=== PATIENT | male | born 1970 | race Hispanic/Latino ===

== ENCOUNTER 2019-03-11 15:53 | Emergency (ER) | payer OTHER ==
[2019-03-11] MEDS ORDERED: ACETAMINOPHEN EXTRA STRENGTH 500 MG TABLET ONE (16:10)
[2019-03-11 16:32] LABS: RAPID GROUP A STREP NEGATIVE (NEGATIVE)
== END 2019-03-11 17:03 | disposition home or self-care (01) ==
LOC: EDH 15:53
DX: J10.1 Influenza due to other identified influenza virus with other respiratory manifestations (principal); R50.81 Fever presenting with conditions classified elsewhere
CPT/HCPCS: 87804; 87880